=== PATIENT | female | born 1950 | race Caucasian/White ===

== ENCOUNTER → 2017-09-25 | Outpatient (CLI) | payer MEDICARE | LOC: M RAD 09:55 | DX: Z12.31 Encounter for screening mammogram for malignant neoplasm of breast (principal) | CPT/HCPCS: 77067 ==

== ENCOUNTER → 2017-10-29 | Outpatient (CLI) | payer MEDICARE ==
[~2017-10-29] MED LIST: ISOVUE-370 76% 100ML VIAL (Q9967) As Ordered
== END ==
LOC: M RAD 10:33
DX: R59.9 Enlarged lymph nodes, unspecified (principal)
CPT/HCPCS: Q9967

== ENCOUNTER → 2017-12-16 | Outpatient (CLI) | payer MEDICARE ==
[~2017-12-16] MED LIST changes: -ISOVUE-370 76% 100ML VIAL (Q9967) As Ordered; +LIDOCAINE 1% MDV 20ML VIAL As Ordered
== END ==
LOC: M RADPRO 08:03
DX: R59.0 Localized enlarged lymph nodes (principal); E03.9 Hypothyroidism, unspecified; K21.9 Gastro-esophageal reflux disease without esophagitis; M81.8 Other osteoporosis without current pathological fracture; F32.9 Major depressive disorder, single episode, unspecified; Z85.528 Personal history of other malignant neoplasm of kidney; Z79.891 Long term (current) use of opiate analgesic; Z79.899 Other long term (current) drug therapy
CPT/HCPCS: 10022

== ENCOUNTER → 2018-10-08 | Outpatient (CLI) | payer MEDICARE ==
[~2018-10-08] MED LIST changes: +/CELE20CA; +/PRAV20TA PO; +BABY81CH PO; +CALCCHW12 PO; +CLAR10CA3 PO; +CLEO300C2 PO; +COLA100C2; +FOSA35TA; +IRON65TA PO; +LEVO112T3 PO; -LIDOCAINE 1% MDV 20ML VIAL As Ordered; +LISI20TA5 PO; +MAGICMW MT; +PERC5TAB8; +PRIL40CA PO; +PROZ40CA PO; +THERGRAN PO; +TRAM50TA2 PO; +TYLE167L PO; +VITA200016 PO; +VITA400C PO; +VITAMIN D50000 UNT
--- NOTE | 2018-10-08 14:32 | REPMRS ---
Patient History The patient states she has not had a clinical breast exam in over a year. Patient is postmenopausal, has history of colorectal cancer at age 59, has history of kidney cancer at age 47, and has history of endometrial cancer at age 41. Family history of breast cancer at age 55 in mother, colorectal cancer in maternal grandfather, endometrial cancer in sister. Benign stereotactic core biopsy of the left breast, March 25, 2010. Benign US guided breast biopsy of the right breast. No Hormone Replacement Therapy Digital Woman Screen Mammo: October 08, 2018 - Exam #: [id number] Bilateral CC and MLO view(s) were taken. Technologist: Viri Jimenez, Technologist Prior study comparison: September 25, 2017, bilateral digital mammo screening bilat, performed at [facility]. July 14, 2016, bilateral digital mammo screening bilat, performed at [facility]. July 03, 2015, bilateral digital mammo screening bilat, performed at [facility]. FINDINGS: The breast tissue is almost entirely fat. There is a needle biopsy marker clip again noted in each breast unchanged. There has been no change in the appearance of the mammogram from the prior studies. There is no interval development of dominant mass, architectural distortion, or clustered microcalcification typical of malignancy. 3-D tomosynthesis shows no additional findings. Assessment: BI-RADS/ACR category 2 mammogram. Benign Findings. Recommendation Routine screening mammogram of both breasts in 1 year (for women over age 40). This patient's Lifetime Breast Cancer RIsk is estimated at 8.8 %. This mammogram was interpreted with the aid of an FDA-approved computer-aided dectection system. Electronically Signed By: Jonny Butts MD 10/08/18 2843
--- NOTE | 2018-10-13 09:48 | DEXA ---
AP SPINE L1 - L4 1.009 -1.5 0.1 LT FEMUR TOTAL 0.853 -1.2 0.0 LT NECK 0.765 -2.0 -0.5 RT FEMUR TOTAL 0.873 -1.1 0.2 RT NECK 0.781 -1.9 -0.3 TOTAL BODY TOTAL OTHER COMMENTS: There is low bone density of the spine and hips. FOLLOW-UP: Recommendation for the next bone density exam: 2 years. XAVIER
== END ==
LOC: M WHC 11:43
PROVIDERS: ATTEND Family Medicine
DX: Z12.31 Encounter for screening mammogram for malignant neoplasm of breast (principal); Z78.0 Asymptomatic menopausal state; Z85.038 Personal history of other malignant neoplasm of large intestine; Z85.528 Personal history of other malignant neoplasm of kidney; Z85.89 Personal history of malignant neoplasm of other organs and systems; Z80.3 Family history of malignant neoplasm of breast; Z80.49 Family history of malignant neoplasm of other genital organs; Z86.018 Personal history of other benign neoplasm

== ENCOUNTER 2019-03-10 08:08 | Day surgery (SDC) | payer MEDICARE ==
[~2019-03-10] VITALS: Ht 157.5 cm; Wt 77.6 kg
[~2019-03-10 08:08] MED LIST changes: -/CELE20CA; -/PRAV20TA PO; +ATOR40TA75 PO; +CELE1CAP4; +ECOT81TA5 PO; +FLUO40CA PO; +LEVO100T5 PO; +LISI-538 PO; +MAPA500C PO; +MULT1TAB7 PO; +NORV2TAB PO; +NS 1,000 ML IV ONE; +OMEP40CA2 PO; +PRAV1TAB39 PO; +ULTR50TA8 PO
[2019-03-10] MEDS ORDERED: LIDOCAINE 2% INJ 100 MG/5 ML SDV (FOR ANES.) As Ordered ONE (10:22)
[2019-03-10] MEDS ORDERED: PROPOFOL 200 MG/20 ML VIAL As Ordered ONE ×2 (10:22→10:31)
--- NOTE | 2019-03-10 10:30 | ROOR ---
Patient Name: Luz Marina Mckenna Procedure Date: 03/10/2019 10:18 AM Date of : 1950 Age: 68 Room: [facility] Gender: Female Note Status: Finalized Procedure: Upper GI endoscopy Indications: Suspected esophageal reflux Providers: Cecil Herrmann Jr, MD Referring MD: Ludy Bennett DO Requesting Provider: Medicines: Propofol per Anesthesia Complications: No immediate complications. Procedure: Pre-Anesthesia Assessment: - Prior to the procedure, a History and Physical was performed, and patient medications and allergies were reviewed. The patient is competent. The risks and benefits of the procedure and the sedation options and risks were discussed with the patient. All questions were answered and informed consent was obtained. Patient identification and proposed procedure were verified by the physician and the nurse in the pre-procedure area and in the procedure room. Mental Status Examination: alert and oriented. Airway Examination: normal oropharyngeal airway and neck mobility. Respiratory Examination: clear to auscultation. CV Examination: normal. ASA Grade Assessment: II - A patient with mild systemic disease. After reviewing the risks and benefits, the patient was deemed in satisfactory condition to undergo the procedure. The anesthesia plan was to use moderate sedation / analgesia (conscious sedation). Immediately prior to administration of medications, the patient was re-assessed for adequacy to receive sedatives. The heart rate, respiratory rate, oxygen saturations, blood pressure, adequacy of pulmonary ventilation, and response to care were monitored throughout the procedure. The physical status of the patient was re-assessed after the procedure. The Endoscope was introduced through the mouth, and advanced to the second part of duodenum. The upper GI endoscopy was accomplished without difficulty. The patient tolerated the procedure well. Findings: The upper third of the esophagus, middle third of the esophagus and lower third of the esophagus were normal. The cardia, gastric fundus, gastric body, gastric antrum, prepyloric region of the stomach and pylorus were normal. The duodenal bulb, first portion of the duodenum and second portion of the duodenum were normal. Abnormal motility was noted in the middle third of the esophagus and in the lower third of the esophagus. There are extra peristaltic waves in the esophageal body. The distal esophagus/lower esophageal sphincter is open. Impression: - Normal upper third of esophagus, middle third of esophagus and lower third of esophagus. - Normal cardia, gastric fundus, gastric body, antrum, prepyloric region of the stomach and pylorus. - Normal duodenal bulb, first portion of the duodenum and second portion of the duodenum. - Abnormal esophageal motility, suspicious for esophageal spasm. - No specimens collected. Recommendation: - Discharge patient to home (ambulatory). - Return to my office as previously scheduled. Cecil Herrmann MD Cecil Herrmann Jr, MD 03/10/2019 10:29:31 AM Electronically signed by Cecil Herrmann Jr, MD Number of Addenda: 0 Note Initiated On: 03/10/2019 10:18 AM Estimated Blood Loss: Estimated blood loss: none.
--- NOTE | 2019-03-10 10:47 | ROOR ---
Patient Name: Luz Marina Mckenna Procedure Date: 03/10/2019 10:19 AM Date of : 1950 Age: 68 Room: [facility] Gender: Female Note Status: Finalized Procedure: Colonoscopy Indications: High risk colon cancer surveillance: Personal history of colon cancer Providers: Cecil Herrmann Jr, MD Referring MD: Ludy Bennett DO Requesting Provider: Medicines: Propofol per Anesthesia Complications: No immediate complications. Estimated blood loss: None. Procedure: Pre-Anesthesia Assessment: - Prior to the procedure, a History and Physical was performed, and patient medications and allergies were reviewed. The patient is competent. The risks and benefits of the procedure and the sedation options and risks were discussed with the patient. All questions were answered and informed consent was obtained. Patient identification and proposed procedure were verified by the physician and the nurse in the pre-procedure area and in the procedure room. Mental Status Examination: alert and oriented. Airway Examination: normal oropharyngeal airway and neck mobility. Respiratory Examination: clear to auscultation. CV Examination: normal. ASA Grade Assessment: II - A patient with mild systemic disease. After reviewing the risks and benefits, the patient was deemed in satisfactory condition to undergo the procedure. The anesthesia plan was to use moderate sedation / analgesia (conscious sedation). Immediately prior to administration of medications, the patient was re-assessed for adequacy to receive sedatives. The heart rate, respiratory rate, oxygen saturations, blood pressure, adequacy of pulmonary ventilation, and response to care were monitored throughout the procedure. The physical status of the patient was re-assessed after the procedure. The Colonoscope was introduced through the anus and advanced to the ileocolonic anastomosis. The colonoscopy was performed without difficulty. The patient tolerated the procedure well. The quality of the bowel preparation was adequate. Findings: The rectum, sigmoid colon, descending colon, transverse colon, ascending colon and anastomosis appeared normal. Impression: - The rectum, sigmoid colon, descending colon, transverse colon, ascending colon and colonic anastomosis are normal. - No specimens collected. Recommendation: - Discharge patient to home (ambulatory). - Repeat colonoscopy in 5 years for surveillance. Cecil Herrmann MD Cecil Herrmann Jr, MD 03/10/2019 10:47:35 AM Electronically signed by Cecil Herrmann Jr, MD Number of Addenda: 0 Note Initiated On: 03/10/2019 10:19 AM Estimated Blood Loss: Estimated blood loss: none.
[2019-03-10 11:18] VITALS: BP 129/84
== END 2019-03-10 11:28 | disposition home or self-care (01) ==
LOC: M OPP 08:08
PROVIDERS: ATTEND Surgery
DX: K21.9 Gastro-esophageal reflux disease without esophagitis (principal); Z85.038 Personal history of other malignant neoplasm of large intestine; Z79.82 Long term (current) use of aspirin; Z79.899 Other long term (current) drug therapy; Z12.11 Encounter for screening for malignant neoplasm of colon

== ENCOUNTER → 2019-11-10 | Outpatient (CLI) | payer MEDICARE ==
[~2019-11-10] MED LIST changes: -NS 1,000 ML IV ONE; -OMEP40CA2 PO; +OMEP40CA97 PO
== END ==
LOC: M WHC 12:16
PROVIDERS: ATTEND Family Medicine
DX: Z12.31 Encounter for screening mammogram for malignant neoplasm of breast (principal)

== ENCOUNTER → 2020-11-14 | Outpatient (CLI) | payer MEDICARE ==
[~2020-11-14] MED LIST changes: -LISI-538 PO; +LISI20TA33 PO
--- NOTE | 2020-11-14 11:53 | REPMRS ---
Patient History The patient states she had a clinical breast exam in 10/2020 Patient is postmenopausal, has history of colorectal cancer at age 59, has history of other cancer at age 47, and has history of endometrial cancer at age 41. Family history of breast cancer at age 55 in mother, colorectal cancer in maternal grandfather, endometrial cancer in sister, colorectal cancer at age 33 in nephew, colorectal cancer at age 43 in nephew. Benign stereotactic core biopsy of the left breast, March 25, 2010. Benign US guided breast biopsy of the right breast. No Hormone Replacement Therapy Digital Woman Screen Mammo: November 14, 2020 - Exam #: [id number] Bilateral CC and MLO view(s) were taken. Technologist: Afia Limon, Technologist Prior study comparison: November 10, 2019, bilateral digital woman screen mammo performed at [facility]. October 08, 2018, bilateral digital woman screen mammo performed at [facility]. September 25, 2017, bilateral digital mammo screening bilat, performed at [facility]. FINDINGS: The breast tissue is almost entirely fat. The Volpara volumetric breast density category is: A. There is a needle biopsy marker clip again noted in each breast. There has been no change in the appearance of the mammogram from the prior studies. There is no interval development of dominant mass, architectural distortion, or grouped microcalcification typical of malignancy. 3-D tomosynthesis shows no additional findings. Assessment: BI-RADS/ACR category 2 mammogram. Benign Findings. Recommendation Routine screening mammogram of both breasts in 1 year (for women over age 40). This patient's [facility] Lifetime Breast Cancer RIsk is estimated at 7.8 %. This mammogram was interpreted with the aid of an FDA-approved computer-aided dectection system. Electronically Signed By: Jonny Butts MD 11/14/20 [id number]
== END ==
LOC: M WHC 10:43
PROVIDERS: ATTEND Family Medicine
DX: Z12.31 Encounter for screening mammogram for malignant neoplasm of breast (principal); Z80.3 Family history of malignant neoplasm of breast

== ENCOUNTER → 2021-01-18 | Outpatient (REF) | payer MEDICARE ==
[~2021-01-18] MED LIST changes: +OMEP40CA4 PO; -OMEP40CA97 PO
[2021-01-18 13:41] LABS: APPEARANCE, URINE CLEAR (CLEAR); BACTERIA, URINE AUTO NEGATIVE (NEGATIVE); BILIRUBIN, URINE AUTO NEGATIVE (NEGATIVE); BLOOD, URINE BLOOD NEGATIVE (NEGATIVE); COLOR, URINE YELLOW (YELLOW); GLUCOSE, URINE (UA) AUTO NEGATIVE (NEGATIVE); KETONE, URINE AUTO NEGATIVE (NEGATIVE); LEUKOCYTE ESTERASE, URINE AUTO 1+ (NEGATIVE); MUCUS, URINE SMALL (NEGATIVE); NITRITE, URINE AUTO NEGATIVE (NEGATIVE); PROTEIN, URINE AUTO NEGATIVE (NEGATIVE); RBC, URINE AUTO 0 /HPF (0-3); SPECIFIC GRAVITY URINE AUTO 1.021 (1.002-1.035); SQUAMOUS EPITHELIAL CELL UR AU 0 /HPF (0-6); UROBILINOGEN, URINE AUTO 0.2 mg/dL (0.0-2.0); WBC, URINE AUTO 4 /HPF (0-3)
== END ==
LOC: M SMT 12:58
PROVIDERS: ATTEND Nurse Practitioner Women's Health
DX: Z85.528 Personal history of other malignant neoplasm of kidney (principal); Z79.899 Other long term (current) drug therapy
CPT/HCPCS: 81001; 87086; 88108; G0463

== ENCOUNTER → 2021-01-18 | Outpatient (REF) | payer MEDICARE ==
[~2021-01-18] MED LIST changes: -OMEP40CA4 PO; +OMEP40CA97 PO
== END ==
LOC: M LAB REF 12:56
PROVIDERS: ATTEND Family Medicine
DX: R52 Pain, unspecified (principal); Z85.528 Personal history of other malignant neoplasm of kidney; Z85.54 Personal history of malignant neoplasm of ureter

== ENCOUNTER → 2021-02-07 | Outpatient (CLI) | payer MEDICARE ==
--- NOTE | 2021-02-08 04:30 | REP ---
INDICATION: HX KIDNEY CA COMPARISON: None TECHNIQUE: Real time neves scale ultrasound examination using curved array transducer. FINDINGS: Patient is status post right nephrectomy. Left kidney measures 11.0 x 6.0 x 5.7 cm and includes 5.6 x 5.7 x 5.3 cm simple appearing benign upper pole cyst. No hydronephrosis, nephrolithiasis, cystic or renal mass lesion. IMPRESSION: 1. Right nephrectomy. 2. 5.7 cm benign appearing left upper pole renal cyst. <Electronically signed by Aiden Romano > 02/08/21 0426
--- NOTE | 2021-02-08 04:32 | REP ---
INDICATION: HX KIDNEY CA COMPARISON: None TECHNIQUE: Real time B-mode ultrasound examination using curved array transducer. FINDINGS: Bladder is normal in appearance without wall thickening or mass lesion. Bilateral ureteral jets are identified. Prevoid filled bladder measures 94 cc and the patient states feeling full. IMPRESSION: 1. Normal appearance to the bladder. Incomplete filling suspected. <Electronically signed by Aiden Romano > 02/08/21 1808
== END ==
LOC: M RAD 13:15
PROVIDERS: ATTEND Nurse Practitioner Women's Health
DX: Z85.528 Personal history of other malignant neoplasm of kidney (principal); Z90.5 Acquired absence of kidney; N28.1 Cyst of kidney, acquired

== ENCOUNTER → 2021-04-16 | Outpatient (CLI) | payer MEDICARE ==
[~2021-04-16] MED LIST changes: +OMEP40CA4 PO; -OMEP40CA97 PO
[2021-04-16 13:59] LABS: BLOOD UREA NITROGEN 10 MG/DL (7-18); CREATININE FOR GFR 0.83 MG/DL (0.55-1.30); GLOMERULAR FILTRATION RATE > 60.0 (>45)
== END ==
LOC: M LAB 12:47
PROVIDERS: ATTEND Surgery
DX: R10.84 Generalized abdominal pain (principal)

== ENCOUNTER → 2021-04-19 | Outpatient (CLI) | payer MEDICARE ==
[~2021-04-19] MED LIST changes: +GASTROGRAFIN SOLUTION 30ML (Q9963) As Ordered ONE; +ISOVUE-370 76% 100ML VIAL As Ordered ONE
--- NOTE | 2021-04-19 16:02 | REP ---
INDICATION: ABD PAIN, RUQ PAIN. COMPARISON: 02/25/2013 TECHNIQUE: Axial contrast-enhanced images from the lung bases to the pubic symphysis using oral and 100 cc Isovue 370 intravenous contrast material. Precontrast and delayed images of the abdomen obtained along with coronal and sagittal reformations. This CT examination was performed using the following dose reduction techniques: Automated exposure control, adjustment of mA and/or kv according to the patient's size, and the use of iterative reconstruction technique. FINDINGS: Lung bases are clear. Liver, spleen, pancreas, gallbladder, bilateral adrenal glands and left kidney are normal/stable. Previously identified 5 cm simple left renal cyst unchanged. Prior right nephrectomy and retroperitoneal node dissection again noted. Evidence for prior partial right hemicolectomy. Small bowel and remaining large bowel appears normal. Scattered sigmoid diverticula noted without acute diverticulitis.. Pelvis demonstrates normal bladder and prior hysterectomy. No ascites. No free air. No intraperitoneal or retroperitoneal adenopathy. Abdominal aorta and vasculature appear relatively normal. Musculoskeletal structures are intact and without acute osseous abnormality. IMPRESSION: No acute abdominopelvic pathology appreciated. Postsurgical changes as noted above. Stable simple left renal cyst. <Electronically signed by Aiden Romano > 04/19/21 [id number]
== END ==
LOC: M RAD 13:37
PROVIDERS: ATTEND Surgery
DX: R10.11 Right upper quadrant pain (principal)
CPT/HCPCS: 74178; Q9963; Q9967

== ENCOUNTER → 2022-01-01 | Outpatient (CLI) | payer MEDICARE ==
[~2022-01-01] MED LIST changes: -GASTROGRAFIN SOLUTION 30ML (Q9963) As Ordered ONE; -ISOVUE-370 76% 100ML VIAL As Ordered ONE
== END ==
LOC: M WHC 14:39
PROVIDERS: ATTEND Family Medicine
DX: Z12.31 Encounter for screening mammogram for malignant neoplasm of breast (principal)

== ENCOUNTER → 2022-02-05 | Outpatient (CLI) | payer MEDICARE | LOC: M RAD 10:59 | PROVIDERS: ATTEND Nurse Practitioner Women's Health | DX: N28.1 Cyst of kidney, acquired (principal); Z85.528 Personal history of other malignant neoplasm of kidney ==

== ENCOUNTER → 2022-02-11 | Outpatient (REF) | payer MEDICARE ==
[2022-02-11 13:58] LABS: APPEARANCE, URINE CLEAR (CLEAR); BACTERIA, URINE AUTO NEGATIVE (NEGATIVE); BILIRUBIN, URINE AUTO NEGATIVE (NEGATIVE); BLOOD, URINE BLOOD NEGATIVE (NEGATIVE); COLOR, URINE YELLOW (YELLOW); GLUCOSE, URINE (UA) AUTO NEGATIVE (NEGATIVE); KETONE, URINE AUTO NEGATIVE (NEGATIVE); LEUKOCYTE ESTERASE, URINE AUTO NEGATIVE (NEGATIVE); NITRITE, URINE AUTO NEGATIVE (NEGATIVE); PROTEIN, URINE AUTO NEGATIVE (NEGATIVE); RBC, URINE AUTO 0 /HPF (0-3); SPECIFIC GRAVITY URINE AUTO 1.016 (1.002-1.035); SQUAMOUS EPITHELIAL CELL UR AU 1 /HPF (0-6); UROBILINOGEN, URINE AUTO 0.2 mg/dL (0.0-2.0); WBC, URINE AUTO 1 /HPF (0-3)
== END ==
LOC: M SMT 12:54
PROVIDERS: ATTEND Nurse Practitioner Women's Health
DX: Z85.528 Personal history of other malignant neoplasm of kidney (principal); Z79.899 Other long term (current) drug therapy
CPT/HCPCS: 81001; 87086; 88108; G0463

== ENCOUNTER 2022-12-25 10:14 | Day surgery (SDC) | payer MEDICARE ==
[~2022-12-25] VITALS: Ht 162.6 cm; Wt 67.1 kg
[~2022-12-25 10:14] MED LIST changes: +ALLO100T PO; +ATOR1TAB21 PO; +B-12100010 PO; +C 50TAB PO; +D 10CHW PO; +NS 1,000 ML IV ONE
[2022-12-25] MEDS ORDERED: propofoL 200 MG/20 ML VIAL As Ordered ONE ×2 (10:55→11:03)
[2022-12-25] MEDS ORDERED: LIDOCAINE 2% 100MG/5ML SDV (FOR ANES.) As Ordered ONE (10:55)
[2022-12-25 11:44] VITALS: BP 124/75
== END 2022-12-25 11:46 | disposition home or self-care (01) ==
LOC: M OPP 10:14
PROVIDERS: ATTEND Surgery
DX: Z85.038 Personal history of other malignant neoplasm of large intestine (principal); K64.2 Third degree hemorrhoids; K57.30 Diverticulosis of large intestine without perforation or abscess without bleeding; Z15.09 Genetic susceptibility to other malignant neoplasm; K29.70 Gastritis, unspecified, without bleeding; K29.80 Duodenitis without bleeding; Z85.59 Personal history of malignant neoplasm of other urinary tract organ; Z85.42 Personal history of malignant neoplasm of other parts of uterus; Z90.5 Acquired absence of kidney; Z79.02 Long term (current) use of antithrombotics/antiplatelets; Z79.51 Long term (current) use of inhaled steroids; Z79.82 Long term (current) use of aspirin; Z79.891 Long term (current) use of opiate analgesic; Z79.899 Other long term (current) drug therapy; Z91.030 Bee allergy status
CPT/HCPCS: 43239; 88305; G0105

== ENCOUNTER → 2023-02-11 | Outpatient (REF) | payer MEDICARE ==
[~2023-02-11] MED LIST changes: -NS 1,000 ML IV ONE
== END ==
LOC: M SMT 13:07
PROVIDERS: ATTEND Physician Assistant
DX: Z85.528 Personal history of other malignant neoplasm of kidney (principal)

== ENCOUNTER → 2024-02-10 | Outpatient (CLI) | payer MEDICARE | LOC: M RAD 12:33 | PROVIDERS: ATTEND Physician Assistant | DX: Z85.528 Personal history of other malignant neoplasm of kidney (principal) ==

== ENCOUNTER → 2024-02-15 | Outpatient (REF) | payer MEDICARE ==
[2024-02-15 13:00] LABS: APPEARANCE, URINE HAZY (CLEAR); BACTERIA, URINE AUTO NEGATIVE (NEGATIVE); BILIRUBIN, URINE AUTO NEGATIVE (NEGATIVE); BLOOD, URINE BLOOD NEGATIVE (NEGATIVE); CALCIUM OXALATE CRYSTALS SMALL; COLOR, URINE YELLOW (YELLOW); GLUCOSE, URINE (UA) AUTO NEGATIVE (NEGATIVE); KETONE, URINE AUTO TRACE mg/dL (NEGATIVE); LEUKOCYTE ESTERASE, URINE AUTO NEGATIVE (NEGATIVE); MUCUS, URINE SMALL (NEGATIVE); NITRITE, URINE AUTO NEGATIVE (NEGATIVE); PROTEIN, URINE AUTO NEGATIVE (NEGATIVE); RBC, URINE AUTO 1 /HPF (0-3); SPECIFIC GRAVITY URINE AUTO 1.026 (1.002-1.035); SQUAMOUS EPITHELIAL CELL UR AU 0 /HPF (0-6); UROBILINOGEN, URINE AUTO 0.2 mg/dL (0.0-2.0); WBC, URINE AUTO 2 /HPF (0-3)
== END ==
LOC: M SMT 12:41
PROVIDERS: ATTEND Physician Assistant
DX: Z85.528 Personal history of other malignant neoplasm of kidney (principal)

== ENCOUNTER → 2024-02-29 | Outpatient (CLI) | payer MEDICARE | LOC: M WHC 11:39 | PROVIDERS: ATTEND Family Medicine | DX: Z12.31 Encounter for screening mammogram for malignant neoplasm of breast (principal) ==

== ENCOUNTER → 2025-03-17 | Outpatient (CLI) | payer MEDICARE | LOC: M WHC 11:51 | PROVIDERS: ATTEND Family Medicine | DX: Z12.31 Encounter for screening mammogram for malignant neoplasm of breast (principal); R92.313 Mammographic fatty tissue density, bilateral breasts ==